=== PATIENT | female | born 1935 ===

== ENCOUNTER → 2017-12-17 11:16 | Outpatient (CLI) | payer OTHER ==
[~2017-12-17 11:16] MED LIST: NORVASC5 MG; PROTONIX40 MG; SINGULAIR 10MG10 MG; TRAZODONE HCL50 MG; VANCOMYCIN HCL125 MG; ZYRTEC10 MG
== END | disposition home or self-care (01) ==
LOC: LAB 11:16
DX: R19.7 Diarrhea, unspecified (principal)

== ENCOUNTER 2017-12-17 21:16 | Emergency (ER) | payer OTHER ==
[~2017-12-17] VITALS: Ht 160 cm; Wt 56.7 kg
[2017-12-17] MEDS ORDERED: VANCOMYCIN HCL125 MG (21:34)
[2017-12-17] MEDS ORDERED: NORVASC5 MG (21:34)
[2017-12-17] MEDS ORDERED: TRAZODONE HCL50 MG (21:35)
[2017-12-17] MEDS ORDERED: SINGULAIR 10MG10 MG (21:35)
[2017-12-17] MEDS ORDERED: PROTONIX40 MG (21:35)
[2017-12-17] MEDS ORDERED: ZYRTEC10 MG (21:35)
== END 2017-12-18 01:40 | disposition home or self-care (01) ==
LOC: ER 21:16
DX: K51.00 Ulcerative (chronic) pancolitis without complications (principal); A04.72 Enterocolitis due to Clostridium difficile, not specified as recurrent

== ENCOUNTER → 2019-01-02 16:25 | Outpatient (CLI) | payer OTHER | END | disposition home or self-care (01) | LOC: RAD 16:25 | DX: M15.0 Primary generalized (osteo)arthritis (principal) ==

== ENCOUNTER → 2020-11-22 07:18 | Outpatient (CLI) | payer OTHER | END | disposition home or self-care (01) | LOC: NUCLEAR 11-01 07:00 | PROVIDERS: ATTEND Internal Medicine Cardiovascular Disease | DX: R07.89 Other chest pain (principal) | CPT/HCPCS: 78452; 93017; A9500; J0153 ==

== ENCOUNTER → 2021-12-23 | Outpatient (CLI) | payer OTHER | END | disposition home or self-care (01) | LOC: TOM 11:03 | PROVIDERS: ATTEND Internal Medicine Infectious Disease | DX: T14.90XA Injury, unspecified, initial encounter (principal); W19.XXXA Unspecified fall, initial encounter ==

== ENCOUNTER → 2022-02-06 10:16 | Outpatient (CLI) | payer OTHER | END | disposition home or self-care (01) | LOC: NUCLEAR 10:16 | PROVIDERS: ATTEND Internal Medicine Cardiovascular Disease | DX: R22.32 Localized swelling, mass and lump, left upper limb (principal) ==

== ENCOUNTER 2022-04-15 15:16 | Outpatient (CLI) | payer OTHER | END 2022-04-15 15:22 | disposition home or self-care (01) | LOC: RAD 15:16 | PROVIDERS: ATTEND Internal Medicine Pulmonary Disease | DX: J30.1 Allergic rhinitis due to pollen (principal); J45.31 Mild persistent asthma with (acute) exacerbation ==

== ENCOUNTER → 2022-07-27 | Outpatient (CLI) | payer OTHER | END | disposition home or self-care (01) | LOC: TOM 10:38 | PROVIDERS: ATTEND Internal Medicine Gastroenterology | DX: R10.32 Left lower quadrant pain (principal) ==